=== PATIENT | male | born 1985 | race African-American/Black ===

== ENCOUNTER 2016-10-13 06:36 | Emergency (ER) | payer OTHER ==
--- NOTE | 2016-10-13 06:58 | EDM.PDOC ---
ED HPI GENERAL MEDICAL PROBLEM - General Chief Complaint: Respiratory Problem Stated Complaint: ALLERGY POSS ASMATHA Time Seen by Provider: 10/13/16 06:57 Source of Information: Reports: Patient History Limitations: Reports: No Limitations - History of Present Illness INITIAL COMMENTS - FREE TEXT/NARRATIVE: History of present illness: []Patient has a history of asthma and woke up with shortness of breath and wheezing this morning. He takes Zyrtec daily but has run out of his albuterol inhaler. Not using any prednisone. Once he arrived at the ED his symptoms were alleviated these requesting an albuterol refill. Review of systems: As per history of present illness and below otherwise all systems reviewed and negative. Past medical history: As per history of present illness and as reviewed below otherwise noncontributory. Surgical history: As per history of present illness and as reviewed below otherwise noncontributory. Social history: No reported history of drug or alcohol abuse. Family history: As per history of present illness and as reviewed below otherwise noncontributory. Physical exam: General: Well developed, well nourished in NAD HEENT: Atraumatic, normocephalic, pupils reactive, negative for conjunctival pallor or scleral icterus, mucous membranes moist, throat clear, neck supple, nontender, trachea midline. Lungs: Clear to auscultation, breath sounds equal bilaterally, no wheezing noted , chest nontender. Heart: S1S2, regular, negative for clicks, rubs, or JVD. Abdomen: Soft, nondistended, nontender. Negative for masses or hepatosplenomegaly. Negative for costovertebral tenderness. Pelvis: Stable nontender. Genitourinary: Deferred. Rectal: Deferred. Extremities: Atraumatic, negative for cords or calf pain. Neurovascular unremarkable. Neuro: Awake, alert, oriented. Cranial nerves II through XII unremarkable. Cerebellum unremarkable. Motor and sensory unremarkable throughout. Exam nonfocal. Diagnostics: [] Therapeutics: [] Impression: []Asthma exacerbation, med refill Plan: []Albuterol inhaler 2 puffs every 4 hours as needed continue daily Zyrtec return if any symptoms worsen and follow up with PMD as needed Definitive disposition and diagnosis as appropriate pending reevaluation and review of above. - Related Data Allergies Allergy/AdvReac Type Severity Reaction Status Date / Time No Known Allergies Allergy Verified 10/13/16 06:41 Home Meds: Home Meds Albuterol [Proventil Neb Soln] 1 mg INH ASDIRECTED 11/23/13 [History] Albuterol Sulfate [Ventolin Hfa] 8 gm IH Q4HR PRN #1 [email or web address] 10/13/16 [Rx] Past Medical History - Past Health History Medical/Surgical History: Denies Medical/Surgical History HEENT History: Reports: None Cardiovascular History: Reports: None Respiratory History: Reports: Asthma Gastrointestinal History: Reports: None Genitourinary History: Reports: None Musculoskeletal History: Reports: Fracture Neurological History: Reports: Head Trauma Psychiatric History: Reports: None Endocrine/Metabolic History: Reports: None Dermatologic History: Reports: None - Infectious Disease History Infectious Disease History: Reports: MRSA - Past Surgical History Other Musculoskeletal Surgeries/Procedures:: leg surgery, rods and pins, hx staph Social & Family History - Family History Family Medical History: Noncontributory - Tobacco Use Smoking Status *Q: Current Every Day Smoker Years of Tobacco use: 8 Packs/Tins Daily: 0.5 Second Hand Smoke Exposure: Yes - Alcohol Use Days Per Week of Alcohol Use: 1 Number of Drinks Per Day: 2 Total Drinks Per Week: 2 - Recreational Drug Use Recreational Drug Use: No Drug Use in Last 12 Months: No Recreational Drug Type: Reports: Marijuana/Hashish Recreational Drug Use Frequency: Rarely ED ROS GENERAL - Review of Systems Review Of Systems: See Below (See history of present illness) ED EXAM, GENERAL - Physical Exam Exam: See Below (See history of present illness) Course - Vital Signs Last Recorded V/S: Last Vital Signs Temp 36.6 C 10/13/16 06:41 Pulse 76 10/13/16 06:41 Resp 18 10/13/16 06:41 BP 130/74 10/13/16 06:41 Pulse Ox 97 10/13/16 06:41 Departure - Departure Time of Disposition: 07:04 Disposition: Home, Self-Care 01 Condition: Good Clinical Impression: Asthma exacerbation, Medication refill - Discharge Information Prescriptions: Albuterol Sulfate [Ventolin Hfa] 8 gm IH Q4HR PRN #1 [email or web address] PRN Reason: Wheezing Forms: ED Department Discharge Additional Instructions: The following information is given to patients seen in the emergency department who are being discharged to home. This information is to outline your options for follow-up care. We provide all patients seen in our emergency department with a follow-up referral. The need for follow-up, as well as the timing and circumstances, are variable depending upon the specifics of your emergency department visit. If you don't have a primary care physician on staff, we will provide you with a referral. We always advise you to contact your personal physician following an emergency department visit to inform them of the circumstance of the visit and for follow-up with them and/or the need for any referrals to a consulting specialist. The emergency department will also refer you to a specialist when appropriate. This referral assures that you have the opportunity for follow-up care with a specialist. All of these measure are taken in an effort to provide you with optimal care, which includes your follow-up. Under all circumstances we always encourage you to contact your private physician who remains a resource for coordinating your care. When calling for follow-up care, please make the office aware that this follow-up is from your recent emergency room visit. If for any reason you are refused follow-up, please contact the [facility] Emergency Department at and asked to speak to the emergency department charge nurse. Albuterol 2 puffs every 4 hours as needed for wheezing, continue daily Zyrtec, follow-up with primary care, return if any symptoms worsen or change [facility] [address] [place] [id number]
== END 2016-10-13 07:20 | disposition home or self-care (01) ==
LOC: MW.ED 06:36
CPT/HCPCS: 99283; 99284

== ENCOUNTER 2016-10-29 23:55 | Emergency (ER) | payer SELFPAY ==
[2016-10-30] MEDS ORDERED: methylPREDNISolone Sodium Succinate 125 MG/2 ML SDV ONE (00:07)
[2016-10-30] MEDS ORDERED: Albuterol/Ipratropium 3.0-0.5 MG/3 ML Neb Soln ONE (00:07)
[2016-10-30] MEDS ORDERED: Albuterol/Ipratropium 3.0-0.5 MG/3 ML Neb Soln NEB ONE (00:12)
[2016-10-30] MEDS ORDERED: methylPREDNISolone Sodium Succinate 125 MG/2 ML SDV IM ONE (00:12)
--- NOTE | 2016-10-30 01:09 | EDM.PDOC ---
ED HPI GENERAL MEDICAL PROBLEM - General Stated Complaint: SHORTNESS OF BREATH/ASTHMA Time Seen by Provider: 10/30/16 00:05 Source of Information: Reports: Patient History Limitations: Reports: No Limitations - History of Present Illness INITIAL COMMENTS - FREE TEXT/NARRATIVE: HISTORY AND PHYSICAL: History of present illness: [31-year-old male with a history of asthma out of his medications recently now presents to the emergency department complaining of wheezing. Patient thinks it' s and dust allergies triggered his asthma exacerbation. He feels wheezy no chest pain and no productive cough or fever.] Review of systems: As per history of present illness and below otherwise all systems reviewed and negative. Past medical history: As per history of present illness and as reviewed below otherwise noncontributory. Surgical history: As per history of present illness and as reviewed below otherwise noncontributory. Social history: No reported history of drug or alcohol abuse. Family history: As per history of present illness and as reviewed below otherwise noncontributory. Physical exam: Well appearing patient distress normal respiratory rate and pulse ox. Trace wheezing bilateral with no asymmetry no rales rubs or rhonchi HEENT: Atraumatic, normocephalic, pupils reactive, negative for conjunctival pallor or scleral icterus, mucous membranes moist, throat clear, neck supple, nontender, trachea midline. Lungs: breath sounds equal bilaterally, chest nontender. Heart: S1S2, regular, negative for clicks, rubs, or JVD. Abdomen: Soft, nondistended, nontender. Negative for masses or hepatosplenomegaly. Negative for costovertebral tenderness. Pelvis: Stable nontender. Genitourinary: Deferred. Rectal: Deferred. Extremities: Atraumatic, negative for cords or calf pain. Neurovascular unremarkable. Neuro: Awake, alert, oriented. Cranial nerves II through XII unremarkable. Cerebellum unremarkable. Motor and sensory unremarkable throughout. Exam nonfocal. Diagnostics: [] Therapeutics: [Nebulize therapy and steroids] Impression: [Asthma exacerbation] Plan: [Signs and symptoms consistent with uncomplicated asthma exacerbation in a well- appearing patient with stable vitals. Patient feels asymptomatic after treatment. Specifically no x-rays are clinically indicated given patient's normal respiratory rate and pulse ox. Patient feels improved after single nebulized therapy. Normal respiratory rate and pulse ox and no respiratory distress. Steroids were given] patient has no infectious prodrome no further workup or treatment indicated. Patient agrees with outpatient follow-up. Strict return precautions given. Definitive disposition and diagnosis as appropriate pending reevaluation and review of above. Chest Pain Score (Numeric/FACES): 2 - Related Data Allergies Allergy/AdvReac Type Severity Reaction Status Date / Time cats Allergy Sneezing Uncoded 10/30/16 00:30 dust Allergy Sneezing Uncoded 10/30/16 00:30 Home Meds: Home Meds Albuterol Sulfate [Ventolin Hfa] 1 puff INH Q4HR PRN 10/30/16 [History] Prednisone [IMW: predniSONE] 60 mg PO WITHBREAKFAST #5 tab 10/30/16 [Rx] Past Medical History - Past Health History Medical/Surgical History: Denies Medical/Surgical History HEENT History: Reports: None Cardiovascular History: Reports: None Respiratory History: Reports: Asthma Gastrointestinal History: Reports: None Genitourinary History: Reports: None Musculoskeletal History: Reports: Fracture Neurological History: Reports: Head Trauma Psychiatric History: Reports: None Endocrine/Metabolic History: Reports: None Dermatologic History: Reports: None - Infectious Disease History Infectious Disease History: Reports: MRSA - Past Surgical History Respiratory Surgical History: Reports: None Social & Family History - Family History Family Medical History: Noncontributory - Tobacco Use Smoking Status *Q: Current Every Day Smoker Years of Tobacco use: 8 Packs/Tins Daily: 0.5 Second Hand Smoke Exposure: Yes - Caffeine Use Caffeine Use: Reports: None - Alcohol Use Days Per Week of Alcohol Use: 3 Number of Drinks Per Day: 3 Total Drinks Per Week: 9 - Recreational Drug Use Recreational Drug Use: No Drug Use in Last 12 Months: No Recreational Drug Type: Reports: Marijuana/Hashish Recreational Drug Use Frequency: Rarely ED ROS GENERAL - Review of Systems Review Of Systems: See Below (History of present illness) ED EXAM, GENERAL - Physical Exam Exam: See Below (History of present illness) Course - Vital Signs Last Recorded V/S: Last Vital Signs Temp 36.6 C 10/29/16 23:59 Pulse 78 10/30/16 02:11 Resp 18 10/30/16 02:11 BP 117/78 10/30/16 02:11 Pulse Ox 98 10/30/16 02:11 - Orders/Labs/Meds Orders: Active Orders 24 hr Category Date Time Status RT Aerosol Therapy [RC] ASDIRECTED Care 10/30/16 00:13 Active RT Post Treatment Assessment [RC] Click To Edit Care 10/30/16 01:57 Active RT Post Treatment Assessment [RC] Click To Edit Care 10/30/16 02:03 Active RT Pre-Treatment Assessment [RC] Click To Edit Care 10/30/16 01:57 Active RT Pre-Treatment Assessment [RC] Click To Edit Care 10/30/16 02:03 Active Meds: Medications Discontinued Medications Generic Name Dose Route Start Last Admin Trade Name Linsey PRN Reason Stop Dose Admin Albuterol 1 gm 10/30/16 01:55 10/30/16 02:10 Proventil Hfa INH 10/30/16 01:56 Not Given ONETIME ONE Albuterol Confirm 10/30/16 01:53 10/30/16 02:06 Ventolin Hfa Administered 10/30/16 01:54 8 gm Dose Administration 8 gm INH .STK-MED ONE Albuterol 8 gm 10/30/16 02:03 10/30/16 02:10 Proventil Hfa INH 10/30/16 02:04 Not Given ONETIME ONE Albuterol/Ipratropium Confirm 10/30/16 00:07 10/30/16 00:50 Duoneb 3.0-0.5 Mg/3 Ml Administered 10/30/16 00:08 Not Given Dose 3 ml .ROUTE .STK-MED ONE Albuterol/Ipratropium 3 ml 10/30/16 00:12 10/30/16 00:48 Duoneb 3.0-0.5 Mg/3 Ml NEB 10/30/16 00:13 3 ml ONETIME ONE Administration Methylprednisolone Sodium Succinate Confirm 10/30/16 00:07 10/30/16 00:50 Solu-Medrol Administered 10/30/16 00:08 Not Given Dose 125 mg .ROUTE .STK-MED ONE Methylprednisolone Sodium Succinate 125 mg 10/30/16 00:12 10/30/16 00:49 Solu-Medrol IM 10/30/16 00:13 125 mg ONETIME ONE Administration Departure - Departure Time of Disposition: 01:50 Disposition: Home, Self-Care 01 Condition: Good Clinical Impression: Asthma exacerbation - Discharge Information Prescriptions: Prednisone [IMW: predniSONE] 60 mg PO WITHBREAKFAST #5 tab Instructions: Asthma, Adult Referrals: PCP,None [Primary Care Provider] - Forms: ED Department Discharge Additional Instructions: The following information is given to patients seen in the emergency department who are being discharged to home. This information is to outline your options for follow-up care. We provide all patients seen in our emergency department with a follow-up referral. The need for follow-up, as well as the timing and circumstances, are variable depending upon the specifics of your emergency department visit. If you don't have a primary care physician on staff, we will provide you with a referral. We always advise you to contact your personal physician following an emergency department visit to inform them of the circumstance of the visit and for follow-up with them and/or the need for any referrals to a consulting specialist. The emergency department will also refer you to a specialist when appropriate. This referral assures that you have the opportunity for follow-up care with a specialist. All of these measure are taken in an effort to provide you with optimal care, which includes your follow-up. Under all circumstances we always encourage you to contact your private physician who remains a resource for coordinating your care. When calling for follow-up care, please make the office aware that this follow-up is from your recent emergency room visit. If for any reason you are refused follow-up, please contact the [facility] Emergency Department at and asked to speak to the emergency department charge nurse. It appears that you've had an attack of your asthma tonight. As you mentioned it is likely that is triggered by your allergies. You do not have clinical signs of infection, and the fact that you felt well last night before this asthma attack is reassuring that her symptoms represent just an asthma attack alone. Finish prednisone as prescribed once a day for 5 more days. Use your inhaler with a spacer 2 puffs every 4 hours as needed for wheezing. Follow-up with your in one day and return immediately for new severe or worsening symptoms - My Orders Last 24 Hours: My Active Orders 10/30/16 00:13 RT Aerosol Therapy [RC] ASDIRECTED 10/30/16 01:57 RT Post Treatment Assessment [RC] Click To Edit RT Pre-Treatment Assessment [RC] Click To Edit 10/30/16 02:03 RT Post Treatment Assessment [RC] Click To Edit RT Pre-Treatment Assessment [RC] Click To Edit - Assessment/Plan Last 24 Hours: My Active Orders 10/30/16 00:13 RT Aerosol Therapy [RC] ASDIRECTED 10/30/16 01:57 RT Post Treatment Assessment [RC] Click To Edit RT Pre-Treatment Assessment [RC] Click To Edit 10/30/16 02:03 RT Post Treatment Assessment [RC] Click To Edit RT Pre-Treatment Assessment [RC] Click To Edit
[2016-10-30] MEDS ORDERED: Albuterol 8 GM Inhaler INH ONE (01:53)
[2016-10-30] MEDS ORDERED: Albuterol 6.7 GM Inhaler INH ONE ×2 (01:55→02:03)
[2016-10-30 02:13] VITALS: BP 117/78
== END 2016-10-30 02:11 | disposition home or self-care (01) ==
LOC: MW.ED 23:55
DX: J45.901 Unspecified asthma with (acute) exacerbation (principal); F17.210 Nicotine dependence, cigarettes, uncomplicated; Z91.09 Other allergy status, other than to drugs and biological substances
CPT/HCPCS: 96372; 99284; A9270; J2930; 99283

== ENCOUNTER 2016-11-21 18:08 | Emergency (ER) | payer BC, OTHER ==
--- NOTE | 2016-11-21 18:20 | EDM.PDOC ---
ED HPI GENERAL MEDICAL PROBLEM - General Chief Complaint: General Stated Complaint: SHAKING/PANIC ATTACK Time Seen by Provider: 11/21/16 18:20 Source of Information: Reports: Patient History Limitations: Reports: No Limitations - History of Present Illness INITIAL COMMENTS - FREE TEXT/NARRATIVE: HISTORY AND PHYSICAL: 31-year-old male presenting with rapid breathing/panic attack 3-1/2 hours. History of Present Illness: []Patient and relates that they have been having marital problems has filed for divorce. She has been supportive of her in the room. Remote history of suicidal ideation. Denies any of this at this time Denies having any symptoms of illness, chest pain or palpitations Review of Systems: As per history of present illness and below otherwise all systems reviewed and negative. Past medical history: As per history of present illness and as reviewed below otherwise noncontributory. Surgical history: As per history of present illness and as reviewed below otherwise noncontributory. Social history: No reported history of drug or alcohol abuse. Family history: As per history of present illness and as reviewed below otherwise noncontributory. Physical exam: Alert and oriented black male rapid respiratory rate 32, he is able to answer questions appropriately. Is able to slow his breathing down for a few seconds. HEENT: Atraumatic, normocehpalic, pupils reactive, negative for conjunctival pallor or scleral icterus, mucous membranes moist, throat clear, neck supple, nontender, trachea midline. Lungs: Clear to auscultation, breath sounds equal bilaterally, chest non tender. Heart: S1S2, regular, negative for clicks, rubs, or JVD. Abdomen: Soft, nondistended, nontender. Negative for masses or hepatossplenmegaly. Negative for costovertebral tenderness. Pelvis: Stable nontender. Genitourinary: Deferred. Rectal: Deferred Extremities: Atraumatic, negative for cords or calf pain. Neurovascular unremarkable. Neuro: Awake, alert, oriented. Cranial nerves II through XII unremarkable. Cerebellum unremarkable. Motor and sensory unremarkable throughout. Exam nonfocal. Diagnostics: [] Therapeutics: [Brown paper bag was given for him to breathe in.] Impression: [Panic disorder] Plan: [refer to [facility] [phone] ] Definitive disposition and diagnosis as appropriate pending reevaluation and review of above. Onset: Today, Sudden Duration: Hour(s): Location: Reports: Generalized Generalized Pain Score (Numeric/FACES): 3 - Related Data Allergies Allergy/AdvReac Type Severity Reaction Status Date / Time cats Allergy Sneezing Uncoded 10/30/16 00:30 dust Allergy Sneezing Uncoded 10/30/16 00:30 Home Meds: Home Meds Albuterol Sulfate [Ventolin Hfa] 1 puff INH Q4HR PRN 10/30/16 [History] Past Medical History - Past Health History Medical/Surgical History: Denies Medical/Surgical History HEENT History: Reports: None Cardiovascular History: Reports: None Respiratory History: Reports: Asthma Gastrointestinal History: Reports: None Genitourinary History: Reports: None Musculoskeletal History: Reports: Fracture Neurological History: Reports: Head Trauma Psychiatric History: Reports: None Endocrine/Metabolic History: Reports: None Dermatologic History: Reports: None - Infectious Disease History Infectious Disease History: Reports: MRSA - Past Surgical History Respiratory Surgical History: Reports: None Social & Family History - Family History Family Medical History: Noncontributory - Tobacco Use Smoking Status *Q: Current Every Day Smoker Years of Tobacco use: 8 Packs/Tins Daily: 0.5 Second Hand Smoke Exposure: Yes - Caffeine Use Caffeine Use: Reports: None - Alcohol Use Days Per Week of Alcohol Use: 3 Number of Drinks Per Day: 3 Total Drinks Per Week: 9 - Recreational Drug Use Recreational Drug Use: No Drug Use in Last 12 Months: No Recreational Drug Type: Reports: Marijuana/Hashish Recreational Drug Use Frequency: Rarely ED ROS GENERAL - Review of Systems Review Of Systems: ROS reveals no pertinent complaints other than HPI. ED EXAM, GENERAL - Physical Exam Exam: See Below (see dictation) Course - Vital Signs Last Recorded V/S: Last Vital Signs Temp 36.2 C 11/21/16 18:13 Pulse 110 H 11/21/16 18:13 Resp 32 H 11/21/16 18:13 BP 142/72 H 11/21/16 18:13 Pulse Ox Departure - Departure Time of Disposition: 18:34 Disposition: Home, Self-Care 01 Condition: Good Clinical Impression: Panic attack as reaction to stress - Discharge Information Forms: ED Department Discharge Additional Instructions: The following information is given to patients seen in the emergency department who are being discharged to home. This information is to outline your options for follow-up care. We provide all patients seen in our emergency department with a follow-up referral. The need for follow-up, as well as the timing and circumstances, are variable depending upon the specifics of your emergency department visit. If you don't have a primary care physician on staff, we will provide you with a referral. We always advise you to contact your personal physician following an emergency department visit to inform them of the circumstance of the visit and for follow-up with them and/or the need for any referrals to a consulting specialist. The emergency department will also refer you to a specialist when appropriate. This referral assures that you have the opportunity for followup care with a specialist. All of these measure are taken in an effort to provide you with optimal care, which includes your followup. Under all circumstances we always encourage you to contact your private physician who remains a resource for coordinating your care. When calling for followup care, please make the office aware that this follow-up is from your recent emergency room visit. If for any reason you are refused follow-up, please contact the [facility] emergency department at and asked to speak to the emergency department charge nurse. He may try some Benadryl 2 capsules [id number] medication every 6 hours as needed to help Follow up with [facility] Please call them in the morning [phone]
[2016-11-21 19:08] VITALS: BP 139/86
== END 2016-11-21 18:48 | disposition home or self-care (01) ==
LOC: MW.ED 18:08
DX: F41.0 Panic disorder [episodic paroxysmal anxiety] (principal); F43.0 Acute stress reaction; J45.909 Unspecified asthma, uncomplicated; F17.210 Nicotine dependence, cigarettes, uncomplicated
CPT/HCPCS: 99282; 99283

== ENCOUNTER 2016-12-02 18:35 | Emergency (ER) | payer SELFPAY ==
[2016-12-02 19:06] VITALS: BP 125/75
--- NOTE | 2016-12-02 19:16 | EDM.PDOC ---
ED HPI GENERAL MEDICAL PROBLEM - General Chief Complaint: Eye Problems Stated Complaint: LEFT EYE IRTATED Time Seen by Provider: 12/02/16 19:00 Source of Information: Reports: Patient History Limitations: Reports: No Limitations - History of Present Illness INITIAL COMMENTS - FREE TEXT/NARRATIVE: History of present illness: [31-year-old male comes in complaining of a foreign body in his eye. Patient indicates that it was starting to feel slightly irritated last night but he didn 't think much about it went to bed and this morning it was much more irritated need spent several hours today attempting to irrigate it without any luck patient indicates that he can visualize a small opaque dot on his iris.] Review of systems: As per history of present illness and below otherwise all systems reviewed and negative. Past medical history: As per history of present illness and as reviewed below otherwise noncontributory. Surgical history: As per history of present illness and as reviewed below otherwise noncontributory. Social history: No reported history of drug or alcohol abuse. Family history: As per history of present illness and as reviewed below otherwise noncontributory. Physical exam: HEENT: Atraumatic, normocephalic, pupils reactive, negative for conjunctival pallor or scleral icterus, left eye with a silvery white opaque object embedded at the 12:00 Nacho right above the pupil in the iris, mucous membranes moist, throat clear, neck supple, nontender, trachea midline. Lungs: Clear to auscultation, breath sounds equal bilaterally, chest nontender. Heart: S1S2, regular, negative for clicks, rubs, or JVD. Abdomen: Soft, nondistended, nontender. Negative for masses or hepatosplenomegaly. Negative for costovertebral tenderness. Pelvis: Stable nontender. Genitourinary: Deferred. Rectal: Deferred. Extremities: Atraumatic, negative for cords or calf pain. Neurovascular unremarkable. Neuro: Awake, alert, oriented. Cranial nerves II through XII unremarkable. Cerebellum unremarkable. Motor and sensory unremarkable throughout. Exam nonfocal. [employer] called and spoke to, he indicated that he would meet patient in 30-45 minutes over the clinic and see if he needed to manually remove the object for the patient. Diagnostics: [] Therapeutics: [] Impression: [#1 Foreign body in left eye] Plan: [Refer to ophthalmology spoke with who will see him in his office this evening.] Definitive disposition and diagnosis as appropriate pending reevaluation and review of above. left eye Pain Score (Numeric/FACES): 2 - Related Data Allergies Allergy/AdvReac Type Severity Reaction Status Date / Time cats Allergy Sneezing Uncoded 12/02/16 19:01 dust Allergy Sneezing Uncoded 12/02/16 19:01 Home Meds: Home Meds Albuterol Sulfate [Ventolin Hfa] 1 puff INH Q4HR PRN 10/30/16 [History] Past Medical History - Past Health History Medical/Surgical History: Denies Medical/Surgical History HEENT History: Reports: None Cardiovascular History: Reports: None Respiratory History: Reports: Asthma Gastrointestinal History: Reports: None Genitourinary History: Reports: None Musculoskeletal History: Reports: Fracture Neurological History: Reports: Head Trauma Psychiatric History: Reports: None Endocrine/Metabolic History: Reports: None Dermatologic History: Reports: None - Infectious Disease History Infectious Disease History: Reports: MRSA - Past Surgical History Respiratory Surgical History: Reports: None Social & Family History - Family History Family Medical History: Noncontributory - Tobacco Use Smoking Status *Q: Current Every Day Smoker Years of Tobacco use: 9 Packs/Tins Daily: 1 Second Hand Smoke Exposure: Yes - Caffeine Use Caffeine Use: Reports: None - Alcohol Use Days Per Week of Alcohol Use: 3 Number of Drinks Per Day: 3 Total Drinks Per Week: 9 - Recreational Drug Use Recreational Drug Use: No Drug Use in Last 12 Months: No Recreational Drug Type: Reports: Marijuana/Hashish Recreational Drug Use Frequency: Rarely ED ROS GENERAL - Review of Systems Review Of Systems: See Below (See history of present illness) ED EXAM GENERAL W FULL EYE - Physical Exam Exam: See Below (See history of present illness) Course - Vital Signs Last Recorded V/S: Last Vital Signs Temp 36.6 C 12/02/16 18:40 Pulse 107 H 12/02/16 18:40 Resp 18 12/02/16 18:40 BP 125/75 12/02/16 18:40 Pulse Ox 94 L 12/02/16 18:40 Departure - Departure Time of Disposition: 19:15 Disposition: Home, Self-Care 01 Condition: Good Clinical Impression: Foreign body in eyeball, left - Discharge Information Referrals: PCP,None [Primary Care Provider] - Additional Instructions: The following information is given to patients seen in the emergency department who are being discharged to home. This information is to outline your options for follow-up care. We provide all patients seen in our emergency department with a follow-up referral. The need for follow-up, as well as the timing and circumstances, are variable depending upon the specifics of your emergency department visit. If you don't have a primary care physician on staff, we will provide you with a referral. We always advise you to contact your personal physician following an emergency department visit to inform them of the circumstance of the visit and for follow-up with them and/or the need for any referrals to a consulting specialist. The emergency department will also refer you to a specialist when appropriate. This referral assures that you have the opportunity for follow-up care with a specialist. All of these measure are taken in an effort to provide you with optimal care, which includes your follow-up. Under all circumstances we always encourage you to contact your private physician who remains a resource for coordinating your care. When calling for follow-up care, please make the office aware that this follow-up is from your recent emergency room visit. If for any reason you are refused follow-up, please contact the [facility] Emergency Department at and asked to speak to the emergency department charge nurse. Please go immediately to ophthalmology as the nurse directs you he will have a doctor there will be waiting to assist you The doctor's name is Dr. Jamil and he'll be expecting you there immediately upon discharge Return to ED as needed as discussed
== END 2016-12-02 19:25 | disposition home or self-care (01) ==
LOC: MW.ED 18:35
DX: S05.52XA Penetrating wound with foreign body of left eyeball, initial encounter (principal); F17.210 Nicotine dependence, cigarettes, uncomplicated; W45.8XXA Other foreign body or object entering through skin, initial encounter
CPT/HCPCS: 99283

== ENCOUNTER 2017-09-25 08:31 | Emergency (ER) | payer BC ==
[2017-09-25] MEDS ORDERED: Albuterol/Ipratropium 3.0-0.5 MG/3 ML Neb Soln ONE (08:32)
[2017-09-25] MEDS ORDERED: methylPREDNISolone Sodium Succinate 125 MG/2 ML SDV IVPUSH ONE (08:33)
[2017-09-25] MEDS ORDERED: Sodium Chloride 0.9% 1,000 ML IV ONE (08:33)
[2017-09-25] MEDS ORDERED: Sodium Chloride 0.9% 2.5 ML Syringe FLUSH PRN (08:33)
[2017-09-25] MEDS ORDERED: Sodium Chloride 0.9% 10 ML Syringe FLUSH PRN (08:33)
[2017-09-25] MEDS ORDERED: Albuterol/Ipratropium 3.0-0.5 MG/3 ML Neb Soln NEB ONE (08:33)
--- NOTE | 2017-09-25 08:37 | EDM.PDOC ---
ED HPI GENERAL MEDICAL PROBLEM - General Stated Complaint: TROUBLE BREATHING Time Seen by Provider: 09/25/17 08:34 - History of Present Illness INITIAL COMMENTS - FREE TEXT/NARRATIVE: HISTORY AND PHYSICAL: History of present illness: The patient is a 32-year-old male with a history of asthma who says that he does not have a rescue inhaler and when he feels his asthma flaring up he uses Zyrtec and that seems to work and presents with a 24-36 hour history of cough shortness of breath chest discomfort subjective fevers. Patient denies any cardiac history and currently is not taking any prescription medication. He says that he is feeling like he is wheezing and he is short of breath. He has had some vomiting but is not vomiting everything. Is no abdominal complaints. He denies any chest wall trauma Review of systems: As per history of present illness and below otherwise all systems reviewed and negative. Past medical history: As per history of present illness and as reviewed below otherwise noncontributory. Surgical history: As per history of present illness and as reviewed below otherwise noncontributory. Social history: No reported history of drug or alcohol abuse. Family history: As per history of present illness and as reviewed below otherwise noncontributory. Physical exam: General: Well-developed well-nourished male who is nontoxic and speaking in full sentences. Vital signs were noted by me HEENT: Atraumatic, normocephalic, pupils reactive, negative for conjunctival pallor or scleral icterus, mucous membranes moist, throat clear of exudates but tonsils are enlarged left greater than right and there is no cervical adenopathy , neck supple, nontender, trachea midline. Lungs: Air exchange in all alvarez anteriorly but there is expiratory wheezing and no chest wall tenderness but there is no stridor or abdominal work of breathing, breath sounds equal bilaterally, chest nontender. Heart: S1S2, regular in rhythm no overt murmurs Abdomen: Soft, nondistended, nontender. NABS Pelvis: Deferred Genitourinary: Deferred. Rectal: Deferred. Extremities: Atraumatic, negative for cords or calf pain. Neurovascular unremarkable. Neuro: Awake, alert, oriented. Cranial nerves II through XII unremarkable. Cerebellum unremarkable. Motor and sensory unremarkable throughout. Exam nonfocal. Diagnostics: EKG chest x-ray CBC CMP lactic acid Therapeutics: IV O2 monitor IV fluids Solu-Medrol duo neb Toradol Reevaluation after duo neb the patient is moving air better and is having significantly reduced wheezing. We will continue with our current care plan and follow-up all testing results with the patient still says he's having some pleuritic chest pain with breathing Patient is continuing to feel improved and I will discharge home with an albuterol inhaler and spacer as well as a prednisone taper. I will give him follow-up Impression: Pleuritic chest pain/acute asthma exacerbation Definitive disposition and diagnosis as appropriate pending reevaluation and review of above. chest pain Pain Score (Numeric/FACES): 3 - Related Data Allergies Allergy/AdvReac Type Severity Reaction Status Date / Time cats Allergy Sneezing Uncoded 12/02/16 19:01 dust Allergy Sneezing Uncoded 12/02/16 19:01 Home Meds: Home Meds Albuterol Sulfate [Ventolin Hfa] 1 puff INH Q4HR PRN 10/30/16 [History] Past Medical History - Past Health History Medical/Surgical History: Denies Medical/Surgical History HEENT History: Reports: None Cardiovascular History: Reports: None Respiratory History: Reports: Asthma Gastrointestinal History: Reports: None Genitourinary History: Reports: None Musculoskeletal History: Reports: Fracture Neurological History: Reports: Head Trauma Psychiatric History: Reports: None Endocrine/Metabolic History: Reports: None Dermatologic History: Reports: None - Infectious Disease History Infectious Disease History: Reports: MRSA - Past Surgical History Respiratory Surgical History: Reports: None Social & Family History - Family History Family Medical History: Noncontributory - Caffeine Use Caffeine Use: Reports: None ED ROS GENERAL - Review of Systems Review Of Systems: ROS reveals no pertinent complaints other than HPI. ED EXAM, GENERAL - Physical Exam Exam: See Below (see dictation) Course - Vital Signs Last Recorded V/S: Last Vital Signs Temp 36.8 C 09/25/17 08:31 Pulse 77 09/25/17 08:31 Resp 22 H 09/25/17 08:31 BP 154/74 H 09/25/17 08:31 Pulse Ox 98 09/25/17 08:33 - Orders/Labs/Meds Orders: Active Orders 24 hr Category Date Time Status Cardiac Monitoring [RC] . DIRECTED Care 09/25/17 08:33 Active Communication Order [RC] STAT Care 09/25/17 09:57 Ordered EKG Documentation Completion [RC] STAT Care 09/25/17 08:33 Active Oxygen Therapy, ED [RC] ASDIRECTED Care 09/25/17 08:33 Active Pulse Oximetry [RC] ASDIRECTED Care 09/25/17 08:33 Active RT Aerosol Therapy [RC] ASDIRECTED Care 09/25/17 08:34 Active Sodium Chloride 0.9% [Saline Flush] Med 09/25/17 08:33 Active 10 ml FLUSH ASDIRECTED PRN Sodium Chloride 0.9% [Saline Flush] Med 09/25/17 08:33 Active 2.5 ml FLUSH ASDIRECTED PRN Saline Lock Insert [OM.PC] Stat Oth 09/25/17 08:33 Ordered Medication Orders Sodium Chloride (Saline Flush) 10 ml FLUSH ASDIRECTED PRN PRN Reason: Keep Vein Open Sodium Chloride (Saline Flush) 2.5 ml FLUSH ASDIRECTED PRN PRN Reason: Keep Vein Open Labs: Laboratory Tests 09/25/17 09/25/17 09/25/17 Range/Units 08:44 08:44 08:44 WBC 11.08 H (4.0-11.0) K/uL RBC 4.72 (4.50-5.90) M/uL Hgb 14.0 (13.0-17.0) g/dL Hct 42.1 (38.0-50.0) % MCV 89.2 (80.0-98.0) fL MCH 29.7 (27.0-32.0) pg MCHC 33.3 (31.0-37.0) g/dL RDW Std Deviation 41.0 (28.0-62.0) fl RDW Coeff of Yovany 13 (11.0-15.0) % Plt Count 237 (150-400) K/uL MPV 9.90 (7.40-12.00) fL Neut % (Auto) 59.8 (48.0-80.0) % Lymph % (Auto) 26.3 (16.0-40.0) % Wirt % (Auto) 8.7 (0.0-15.0) % Eos % (Auto) 4.7 (0.0-7.0) % Baso % (Auto) 0.5 (0.0-1.5) % Neut # (Auto) 6.6 H (1.4-5.7) K/uL Lymph # (Auto) 2.9 H (0.6-2.4) K/uL Wirt # (Auto) 1.0 H (0.0-0.8) K/uL Eos # (Auto) 0.5 (0.0-0.7) K/uL Baso # (Auto) 0.1 (0.0-0.1) K/uL Nucleated RBC % 0.0 /100WBC Nucleated RBCs # 0 K/uL Lactate 1.6 (0.20-2.00) mmol/L Sodium 141 (136-148) mmol/L Potassium 4.0 (3.5-5.1) mmol/L Chloride 105 (98-107) mmol/L Carbon Dioxide 28.5 (21.0-32.0) mmol/L BUN 8 (7.0-18.0) mg/dL Creatinine 1.4 H (0.8-1.3) mg/dL Est Cr Clr Drug Dosing TNP Estimated GFR (MDRD) > 60.0 ml/min Glucose 92 (74-106) mg/dL Calcium 9.0 (8.5-10.1) mg/dL Total Bilirubin 0.7 (0.2-1.0) mg/dL AST 15 (15-37) IU/L ALT 20 (14-63) IU/L Alkaline Phosphatase 42 L (46-116) U/L Total Protein 7.8 (6.4-8.2) g/dL Albumin 4.0 (3.4-5.0) g/dL Globulin 3.8 H (2.0-3.5) g/dL Albumin/Globulin Ratio 1.1 L (1.3-2.8) Meds: Medications Generic Name Dose Route Start Last Admin Trade Name Freq PRN Reason Stop Dose Admin Sodium Chloride 10 ml 09/25/17 08:33 Saline Flush FLUSH ASDIRECTED PRN Keep Vein Open Sodium Chloride 2.5 ml 09/25/17 08:33 Saline Flush FLUSH ASDIRECTED PRN Keep Vein Open Discontinued Medications Generic Name Dose Route Start Last Admin Trade Name Freq PRN Reason Stop Dose Admin Albuterol/Ipratropium 3 ml 09/25/17 08:33 09/25/17 08:34 Duoneb 3.0-0.5 Mg/3 Ml NEB 09/25/17 08:34 3 ml ONETIME ONE Administration Albuterol/Ipratropium Confirm 09/25/17 08:32 09/25/17 08:52 Duoneb 3.0-0.5 Mg/3 Ml Administered 09/25/17 08:33 Not Given Dose 3 ml .ROUTE .STK-MED ONE Sodium Chloride 1,000 mls @ 999 mls/hr 09/25/17 08:33 09/25/17 08:49 Normal Saline IV 09/25/17 09:33 999 mls/hr STAT ONE Administration Ketorolac Tromethamine 30 mg 09/25/17 09:18 09/25/17 09:41 Toradol IVPUSH 09/25/17 09:19 30 mg ONETIME ONE Administration Methylprednisolone Sodium Succinate 125 mg 09/25/17 08:33 09/25/17 08:55 Solu-Medrol IVPUSH 09/25/17 08:34 125 mg ONETIME ONE Administration Departure - Departure Time of Disposition: 09:59 Disposition: Home, Self-Care 01 Condition: Good Clinical Impression: Asthma exacerbation Qualifiers: Asthma severity: mild Asthma persistence: unspecified Qualified Code(s): J45.901 - Unspecified asthma with (acute) exacerbation - Discharge Information Referrals: PCP,None [Primary Care Provider] - Additional Instructions: The following information is given to patients seen in the emergency department who are being discharged to home. This information is to outline your options for follow-up care. We provide all patients seen in our emergency department with a follow-up referral. The need for follow-up, as well as the timing and circumstances, are variable depending upon the specifics of your emergency department visit. If you don't have a primary care physician on staff, we will provide you with a referral. We always advise you to contact your personal physician following an emergency department visit to inform them of the circumstance of the visit and for follow-up with them and/or the need for any referrals to a consulting specialist. The emergency department will also refer you to a specialist when appropriate. This referral assures that you have the opportunity for followup care with a specialist. All of these measure are taken in an effort to provide you with optimal care, which includes your followup. Under all circumstances we always encourage you to contact your private physician who remains a resource for coordinating your care. When calling for followup care, please make the office aware that this follow-up is from your recent emergency room visit. If for any reason you are refused follow-up, please contact the emergency department at and ask to speak to the emergency department charge nurse. [facility] Primary care- Internal Medicine and Family [address] [address] Push hydration and try to avoid environmental exposures as possible. Please use your inhaler every 6 hours for the next 2 days with a spacer you have been given and then as needed every 6 hours. Take the prednisone as directed. Please call and schedule a follow-up appointment in the clinic and use over-the- counter Tylenol or ibuprofen for any pain. Return to ER as needed and as discussed - My Orders Last 24 Hours: My Active Orders 09/25/17 08:33 Cardiac Monitoring [RC] . DIRECTED EKG Documentation Completion [RC] STAT Oxygen Therapy, ED [RC] ASDIRECTED Pulse Oximetry [RC] ASDIRECTED Sodium Chloride 0.9% [Saline Flush] 10 ml FLUSH ASDIRECTED PRN Sodium Chloride 0.9% [Saline Flush] 2.5 ml FLUSH ASDIRECTED PRN Saline Lock Insert [OM.PC] Stat 09/25/17 08:34 RT Aerosol Therapy [RC] ASDIRECTED 09/25/17 09:57 Communication Order [RC] STAT - Assessment/Plan Last 24 Hours: My Active Orders 09/25/17 08:33 Cardiac Monitoring [RC] . DIRECTED EKG Documentation Completion [RC] STAT Oxygen Therapy, ED [RC] ASDIRECTED Pulse Oximetry [RC] ASDIRECTED Sodium Chloride 0.9% [Saline Flush] 10 ml FLUSH ASDIRECTED PRN Sodium Chloride 0.9% [Saline Flush] 2.5 ml FLUSH ASDIRECTED PRN Saline Lock Insert [OM.PC] Stat 09/25/17 08:34 RT Aerosol Therapy [RC] ASDIRECTED 09/25/17 09:57 Communication Order [RC] STAT
[2017-09-25] MEDS ORDERED: Ketorolac 30 MG/ML SDV IVPUSH ONE (09:18)
[2017-09-25 09:19] LABS: CHLORIDE,CL 105 mmol/L (98-107); SODIUM,NA 141 mmol/L (136-148)
--- NOTE | 2017-09-25 09:24 | CR ---
EXAMINATION: Portable chest radiograph. HISTORY: Shortness of breath. FINDINGS: The trachea is midline. The cardiomediastinal silhouette is within normal limits. No pulmonary infilt rates, effusions or pneumothorax. Osseous structures appear unremarkable. IMPRESSION: No acute cardiopulmonary process.
[2017-09-25 10:38] VITALS: BP 112/75
== END 2017-09-25 10:16 | disposition home or self-care (01) ==
LOC: MW.ED 08:31
DX: J45.901 Unspecified asthma with (acute) exacerbation (principal); Z79.899 Other long term (current) drug therapy
CPT/HCPCS: 36415; 71045; 80053; 83605; 85025; 93005; 96361; 96374; 96375; 99284; J1885; J2930; J7040

== ENCOUNTER 2020-08-04 05:40 | Emergency (ER) | payer SELFPAY ==
[2020-08-04 05:53] VITALS: BP 137/66
[2020-08-04] MEDS ORDERED: Albuterol 6.7 GM Inhaler INH STA (06:02)
--- NOTE | 2020-08-04 06:03 | EDM.PDOC ---
ED HPI GENERAL MEDICAL PROBLEM - General Chief Complaint: Respiratory Problem Stated Complaint: TROUBLE BREATHING Time Seen by Provider: 08/04/20 06:00 - History of Present Illness INITIAL COMMENTS - FREE TEXT/NARRATIVE: History of present illness: [] Patient is short of breath and wheezing. It happens at night mostly during the last year. He had been diagnosed with asthma since a child but has not had any recent activity until he warms up in the [place]. Denies having shortness of breath cough and wheeze and has an appointment to see his doctor but has need for therapy tonight. His daughter has nebulizer machine but he does not have an inhaler or nebulizer medicine. He does not have a fever or chills. Review of systems: As per history of present illness and below otherwise all systems reviewed and negative. Past medical history: As per history of present illness and as reviewed below otherwise noncontributory. Surgical history: As per history of present illness and as reviewed below otherwise noncontribu tory. Social history: No reported history of drug or alcohol abuse. Family history: As per history of present illness and as reviewed below otherwise noncontributory. Physical exam: Constitutional - well developed, well-nourished and in no acute distress HEENT - normocephalic, no evidence of trauma - external nose and mouth normal - no mass in neck and no JVD - mucosae moist EYES - full EOM, PERRL, no icterus - no evidence of inflammation, injection, or drainage Respiratory -slightly prolonged respiratory expiratory phase. Wheezes throughout. Markedly diminished breath sounds throughout. Uses accessory muscle slightly. Cardiovascular - Regular Rhythm with S1 and S2 appreciated and no murmur, gallop or rub. GI - abdomen soft without distension or organomegaly - normal bowel sounds - no guard or rebound Musculoskeletal no gross deformity of long bones or joints - no tenderness, swelling or edema Neurologic - Alert and oriented times four - CN II-XII grossly intact - motor sensory and coordination symmetrically normal Psychiatric - appropriate mood and affect with normal thought content Hematologic - No petechiae or purpura - mucosa appropriate color and sclera not pale - normal nail bed color and refill Integument - no rash or evidence of trauma - normal turgor Diagnostics: [] Therapeutics: [] Impression: [] Plan: [] Definitive disposition and diagnosis as appropriate pending reevaluation and review of above. - Related Data Allergies Allergy/AdvReac Type Severity Reaction Status Date / Time cats Allergy Sneezing Uncoded 08/04/20 05:50 dust Allergy Sneezing Uncoded 08/04/20 05:50 Home Meds: Home Meds predniSONE [Prednisone] 60 mg PO DAILY #21 tablet 08/04/20 [Rx] Past Medical History - Past Health History Medical/Surgical History: Denies Medical/Surgical History HEENT History: Reports: None Cardiovascular History: Reports: None Respiratory History: Reports: Asthma Gastrointestinal History: Reports: None Genitourinary History: Reports: None Musculoskeletal History: Reports: Fracture Neurological History: Reports: Head Trauma Psychiatric History: Reports: None Endocrine/Metabolic History: Reports: None Dermatologic History: Reports: None - Infectious Disease History Infectious Disease History: Reports: MRSA - Past Surgical History Respiratory Surgical History: Reports: None Musculoskeletal Surgical History: Reports: ORIF Other Musculoskeletal Surgeries/Procedures:: leg surgery, rods and pins, hx staph Social & Family History - Family History Family Medical History: No Pertinent Family History - Tobacco Use Tobacco Use Status *Q: Former Tobacco User Used Tobacco, but Quit: Yes Month/Year Tobacco Last Used: 2019 - Caffeine Use Caffeine Use: Reports: Coffee - Recreational Drug Use Recreational Drug Use: Yes Recreational Drug Type: Reports: Marijuana/Hashish Recreational Drug Use Frequency: Weekly ED ROS GENERAL - Review of Systems Review Of Systems: Comprehensive ROS is negative, except as noted in HPI. ED EXAM, GENERAL - Physical Exam Exam: See Below Free Text/Narrative:: My physical exam is in the HPI Course - Vital Signs Text/Narrative:: 0609 hrs. patient slightly improved with inhaler. Plan nebulizer and steroids. 0628 hrs. markedly improved after nebulizer plan discharged on short course of steroids and increase fluids. Last Recorded V/S: Last Vital Signs Temp 36.6 C 08/04/20 05:51 Pulse 64 08/04/20 05:51 Resp 20 08/04/20 05:51 BP 137/66 08/04/20 05:51 Pulse Ox 97 08/04/20 05:51 - Orders/Labs/Meds Orders: Active Orders 24 hr Category Date Time Status RT Aerosol Therapy [RC] ASDIRECTED Care 08/04/20 06:09 Active RT Post Treatment Assessment [RC] Click to Edit Care 08/04/20 06:02 Active RT Pre-Treatment Assessment [RC] Click to Edit Care 08/04/20 06:02 Active Meds: Medications Discontinued Medications Generic Name Dose Route Start Last Admin Trade Name Linsey PRN Reason Stop Dose Admin Albuterol 8 gm 08/04/20 06:02 08/04/20 06:12 Albuterol 6.7 Gm Inhaler INH 08/04/20 06:03 Not Given STAT STA Albuterol Confirm 08/04/20 06:05 08/04/20 06:14 Albuterol 8 Gm Inhaler Administered 08/04/20 06:06 2 puff Dose Administration 8 gm INH .STK-MED ONE Albuterol/Ipratropium 3 ml 08/04/20 06:09 08/04/20 06:14 Albuterol/Ipratropium 3.0-0.5 Mg/3 Ml Neb Soln NEB 08/04/20 06:10 3 ml ONETIME ONE Administration Prednisone 60 mg 08/04/20 06:09 08/04/20 06:14 Prednisone 20 Mg Tab PO 08/04/20 06:10 60 mg ONETIME ONE Administration Departure - Departure Time of Disposition: 06:28 Disposition: Home, Self-Care 01 Condition: Good Clinical Impression: Acute asthma - Discharge Information Prescriptions: predniSONE [Prednisone] 60 mg PO DAILY #21 tablet Instructions: Asthma, Adult Referrals: PCP,None [Primary Care Provider] - Forms: ED Department Discharge Additional Instructions: It is important to drink a lot of fluids to clear your mucus. [facility] [address] [place] [address] [place] [address] The following information is given to patients seen in the emergency department who are being discharged to home. This information is to outline your options for follow-up care. We provide all patients seen in our emergency department with a follow-up referral. The need for follow-up, as well as the timing and circumstances, are variable depending upon the specifics of your emergency department visit. If you don't have a primary care physician on staff, we will provide you with a referral. We always advise you to contact your personal physician following an emergency department visit to inform them of the circumstance of the visit and for follow-up with them and/or the need for any referrals to a consulting specialist. The emergency department will also refer you to a specialist when appropriate. This referral assures that you have the opportunity for follow-up care with a specialist. All of these measure are taken in an effort to provide you with o ptimal care, which includes your follow-up. Under all circumstances we always encourage you to contact your private physician who remains a resource for coordinating your care. When calling for follow-up care, please make the office aware that this follow-up is from your recent emergency room visit. If for any reason you are refused follow-up, please contact the [facility] Emergency Department at and asked to speak to the emergency department charge nurse. Sepsis Event Note (ED) - Evaluation Sepsis Screening Result: No Definite Risk - Focused Exam Vital Signs: Vital Signs Temp Pulse Resp BP Pulse Ox 08/04/20 05:51 36.6 C 64 20 137/66 97 - My Orders Last 24 Hours: My Active Orders 08/04/20 06:02 RT Post Treatment Assessment [RC] Click to Edit RT Pre-Treatment Assessment [RC] Click to Edit 08/04/20 06:09 RT Aerosol Therapy [RC] ASDIRECTED - Assessment/Plan Last 24 Hours: My Active Orders 08/04/20 06:02 RT Post Treatment Assessment [RC] Click to Edit RT Pre-Treatment Assessment [RC] Click to Edit 08/04/20 06:09 RT Aerosol Therapy [RC] ASDIRECTED
[2020-08-04] MEDS ORDERED: Albuterol 8 GM Inhaler INH ONE (06:05)
[2020-08-04] MEDS ORDERED: predniSONE 20 MG Tab PO ONE (06:09)
[2020-08-04] MEDS ORDERED: Albuterol/Ipratropium 3.0-0.5 MG/3 ML Neb Soln NEB ONE (06:09)
[2020-08-04 06:34] VITALS: PULSE 66
== END 2020-08-04 06:34 | disposition home or self-care (01) ==
LOC: MW.ED 05:40
DX: J45.901 Unspecified asthma with (acute) exacerbation (principal); Z87.891 Personal history of nicotine dependence; Z91.048 Other nonmedicinal substance allergy status
CPT/HCPCS: 99284; A9270; J7620-GY